=== PATIENT | female | born 1985 | race African-American/Black ===

== ENCOUNTER 2017-01-09 21:15 | Emergency (ER) | payer MEDICAID ==
[~2017-01-09] VITALS: Ht 165.1 cm; Wt 71.0 kg
[2017-01-10] MEDS ORDERED: KETOROLAC 60MG/2ML VIAL IM ONE (01:00)
[2017-01-10 01:15] VITALS: BP 123/79
== END 2017-01-10 01:57 | disposition home or self-care (01) ==
LOC: ER 21:15
DX: G44.209 Tension-type headache, unspecified, not intractable (principal); J45.909 Unspecified asthma, uncomplicated
CPT/HCPCS: 99282; J1885; Z7610

== ENCOUNTER 2019-02-01 14:42 | Emergency (ER) | payer MEDICAID ==
[~2019-02-01] VITALS: Ht 162.6 cm; Wt 66.0 kg
[2019-02-01] MEDS ORDERED: KETOROLAC 30MG/ML VIAL IV STA (15:40)
[2019-02-01] MEDS ORDERED: SODIUM CHLORIDE 0.9% 1,000 ML IV ONE (15:40)
[2019-02-01] MEDS ORDERED: METOCLOPRAMIDE HCL 10MG/2ML VIAL IV ONE (15:45)
[2019-02-01 17:00] VITALS: BP 121/80
== END 2019-02-01 17:08 | disposition home or self-care (01) ==
LOC: ER 14:42
DX: R51 Headache (principal)
CPT/HCPCS: 81025; 96374; 96375; 99283; J1885; J2765; J7030; Z7610

== ENCOUNTER 2021-02-01 14:17 | Emergency (ER) | payer MEDICAID ==
[~2021-02-01] VITALS: Ht 165.1 cm; Wt 55.0 kg
[2021-02-01] MEDS ORDERED: KETOROLAC 30MG/ML VIAL IM ONE (16:15)
[2021-02-01 17:07] LABS: BASOPHILS % 0.7 % (0.0-2.0); HEMATOCRIT. 35.7 % (36.0-48.0); HEMOGLOBIN. 12.4 g/dL (12.0-16.0); LYMPHOCYTES % 22.4 % (20.0-50.0); MEAN CORPUSCULAR HEMOGLOBIN 31.8 pg (28.0-32.0); MEAN CORPUSCULAR VOLUME 91.4 fL (81.0-99.0); MEAN PLATELET VOLUME 7.3 fl (7.4-10.4); MONOCYTES % 7.5 % (2.0-8.0); NEUTROPHILS % 68.4 % (40.0-76.0); PLATELET 302 x1000/uL (130-400); RED BLOOD CELL COUNT 3.91 mill/uL (4.2-5.4); RED CELL DISTRIBUTION WIDTH 12.9 % (11.6-14.6)
[2021-02-01 17:12] LABS: CHLORIDE 110 mEq/L (98-107)
[2021-02-01] MEDS ORDERED: IBUP-2029 MT (17:26)
[2021-02-01 17:40] VITALS: BP 128/64
== END 2021-02-01 17:41 | disposition home or self-care (01) ==
LOC: ER 17:15
DX: R51.9 Headache, unspecified (principal); J45.909 Unspecified asthma, uncomplicated
CPT/HCPCS: 36415; 80053; 81025; 85025; 96372; 99283; J1885

== ENCOUNTER 2021-04-04 15:45 | Emergency (ER) | payer MEDICAID ==
[~2021-04-04] VITALS: Ht 165.1 cm; Wt 65.0 kg
[~2021-04-04 15:45] MED LIST: IBUP-2029 MT
[2021-04-04] MEDS ORDERED: SUMA11AE2 BOTHNSTRLS (17:34)
[2021-04-04] MEDS ORDERED: ACETAMINOPHEN 325MG TABLET PO ONE (17:45)
[2021-04-04] MEDS ORDERED: IBUPROFEN 400MG TABLET PO ONE (17:45)
[2021-04-04 18:08] VITALS: BP 121/78
== END 2021-04-04 18:10 | disposition home or self-care (01) ==
LOC: ER 15:45
DX: G43.909 Migraine, unspecified, not intractable, without status migrainosus (principal); J45.909 Unspecified asthma, uncomplicated
CPT/HCPCS: 99283

== ENCOUNTER 2021-08-14 11:09 | Emergency (ER) | payer MEDICAID ==
[~2021-08-14] VITALS: Ht 165.1 cm; Wt 64.0 kg
[~2021-08-14 11:09] MED LIST changes: +SUMA11AE2 BOTHNSTRLS
[2021-08-14] MEDS ORDERED: METOCLOPRAMIDE HCL 10MG TABLET PO ONE (12:00)
[2021-08-14] MEDS ORDERED: KETOROLAC 60MG/2ML VIAL IM ONE (12:00)
[2021-08-14 12:55] VITALS: BP 115/70
== END 2021-08-14 14:00 | disposition home or self-care (01) ==
LOC: ER 11:15
DX: G43.909 Migraine, unspecified, not intractable, without status migrainosus (principal); J45.909 Unspecified asthma, uncomplicated
CPT/HCPCS: 96372; 99283; J1885; J8597

== ENCOUNTER 2022-11-16 10:26 | Emergency (ER) | payer MEDICAID ==
[~2022-11-16] VITALS: Ht 165.1 cm; Wt 59.1 kg
[2022-11-16 10:47] VITALS: BP 113/70
[2022-11-16] MEDS ORDERED: IBUPROFEN 600MG TABLET PO STA (10:59)
[2022-11-16] MEDS ORDERED: IMIT25 MT (12:12)
[2022-11-16] MEDS ORDERED: KETOROLAC 60MG/2ML VIAL IM ONE (12:15)
== END 2022-11-16 12:22 | disposition home or self-care (01) ==
LOC: ER 10:26
DX: R51.9 Headache, unspecified (principal); J45.909 Unspecified asthma, uncomplicated
CPT/HCPCS: 70450; 81025; 96372; 99285; J1885; Z7610

== ENCOUNTER 2025-04-17 08:10 | Emergency (ER) | payer MEDICAID, OTHER ==
[~2025-04-17] VITALS: Ht 165.1 cm; Wt 67.0 kg
[~2025-04-17 08:10] MED LIST changes: +IBUP-1455 MT; -IBUP-2029 MT; +IMIT25 MT
[2025-04-17 08:12] VITALS: BP 120/81; TEMP 37.1; O2SAT 100
[2025-04-17 08:13] VITALS: PULSE 90; RESP 16; O2SAT 99
[2025-04-17] MEDS ORDERED: IBUP-2030 MT (08:49)
[2025-04-17] MEDS ORDERED: IMIT25 MT (08:49)
[2025-04-17] MEDS: SUMATRIPTAN SUCCINATE 25MG TABLET PO ONE (08:53)
[2025-04-17] MEDS: KETOROLAC 30MG/ML VIAL IM ONE (08:53)
[2025-04-17] MEDS: ACETAMINOPHEN 325MG TABLET PO ONE (08:54)
== END 2025-04-17 09:18 | disposition home or self-care (01) ==
LOC: ER 08:10
DX: G43.909 Migraine, unspecified, not intractable, without status migrainosus (principal); J45.909 Unspecified asthma, uncomplicated
CPT/HCPCS: 99283; 96372; J1885